=== PATIENT | male | born 1940 | race Caucasian/White ===

== ENCOUNTER → 2018-09-22 | Outpatient (CLI) | payer MEDICARE ==
[~2018-09-22] MED LIST: AMLO5TAB9 PO; ATORVASTATIN PO; EZET10 PO; HEALTH PO; METO-391 PO; TRAV2.5D OU; losartan PO
== END | disposition home or self-care (01) ==
LOC: SHCH 08:15
PROVIDERS: ATTEND Internal Medicine Cardiovascular Disease
DX: I11.9 Hypertensive heart disease without heart failure (principal)
CPT/HCPCS: 93306

== ENCOUNTER → 2018-09-26 | Outpatient (CLI) | payer MEDICARE ==
[~2018-09-26] VITALS: Ht 177.8 cm; Wt 97.5 kg
[~2018-09-26] MED LIST changes: +REGADENOSON 0.4 MG/5 ML PF SYG IVP SCH
== END | disposition home or self-care (01) ==
LOC: SHCH 08:16
PROVIDERS: ATTEND Internal Medicine Cardiovascular Disease
DX: I10 Essential (primary) hypertension (principal); I48.91 Unspecified atrial fibrillation
CPT/HCPCS: 78452; 93017; 96374; A9500 ×2; J2785

== ENCOUNTER 2018-11-01 08:43 | Observation (INO) | payer MEDICARE ==
[2018-10-31 08:49] LABS: BASOPHILS % (AUTO) 0.5 % (0.0-5.0); EOSINOPHILS % (AUTO) 2.6 % (0.0-8.0); HEMATOCRIT 44.3 % (42-54); LYMPHOCYTES % (AUTO) 19.7 % (21.0-51.0); MEAN CORPUSCULAR HEMOGLOBIN 32.7 pg (27.0-33.0); MEAN CORPUSCULAR HGB CONC 33.1 g/dL (32.0-36.0); MEAN CORPUSCULAR VOLUME 98.9 fL (79-99); MONOCYTES % (AUTO) 11.8 % (3.0-13.0); NEUTROPHILS % (AUTO) 65.4 % (40.0-77.0); NUCLEATED RED BLOOD CELLS 0.1 % (0.0-0.19); PLATELET COUNT (AUTO) 187 K/uL (130-400); RED BLOOD CELL COUNT(AUTO) 4.48 MIL/uL (4.50-6.20); RED CELL DISTRIBUTION WIDTH 14.3 % (11.0-15.5); WHITE BLOOD COUNT (AUTO) 11.2 K/uL (4.8-10.8)
[2018-10-31 08:55] LABS: CREATININE 1.1 mg/dL (0.5-1.5); POTASSIUM 4.6 mmol/L (3.5-5.1)
[2018-10-31 09:04] VITALS: BP 132/80
[2018-10-31 09:10] LABS: INR 1.02 (0.85-1.15); PROTHROMBIN TIME 10.7 SEC (9.6-11.6)
--- NOTE | 2018-10-31 11:10 | NUR ---
ABNORMAL LABS NOTIFIED COMPA RAMIREZ OF PT'S WBC 11.2. NO FURTHER ORDERS GIVEN.
[2018-11-01] VITALS (9 sets, daily range): BP systolic 114–142; BP diastolic 73–86
[~2018-11-01] VITALS: Ht 175.3 cm; Wt 101.7 kg
[~2018-11-01 08:43] MED LIST changes: +APIX5TAB PO; +ASPI-555 PO; +CYAN200018 PO; +FOLI0.4T2 PO; -HEALTH PO; +LATA7.5D OS; -REGADENOSON 0.4 MG/5 ML PF SYG IVP SCH; +SODIUM CHLORIDE 0.9% 1000ML 1,000 ML IV SCH; -TRAV2.5D OU
[2018-11-01] MEDS ORDERED: CEFAZOLIN SODIUM 1 GM VIAL ONE (11:37)
[2018-11-01] MEDS ORDERED: LIDOCAINE HCL 1% MDV 50ML VIAL ONE (11:37)
[2018-11-01] MEDS ORDERED: BUPIVACAINE/PF 0.25% 30ML VIAL IJ ONE (11:37)
[2018-11-01] MEDS ORDERED: MIDAZOLAM HCL 1 MG/ML 2ML VIAL ONE ×2 (11:55→12:31)
[2018-11-01] MEDS ORDERED: MEPERIDINE-PF 25 MG/ML SYG ONE (11:55)
[2018-11-01] MEDS ORDERED: OCTYL 2-CYANOACRYLATE 1 EACH TP ONE (12:59)
[2018-11-01] MEDS ORDERED: METOPROLOL TARTRATE 1 MG/ML 5ML VIAL IV ONE (13:08)
[2018-11-01] MEDS ORDERED: ACETAMINOPHEN 325 MG TAB PO PRN (13:30)
[2018-11-01] MEDS ORDERED: ACETAMINOPHEN-CODEINE 300/30MG TAB PO PRN (14:31)
--- NOTE | 2018-11-01 16:30 | NUR ---
POST PROCEDURE RECEIVED PT FROM DAY PATIENT, IN SHIN'S POSITION, A&OX3 CALM, COOPERATIVE AND DOES NOT APPEAR TO BE IN ANY DISTRESS NOR ANY NEURO DEFICITS PRESENT, PT DOES C/O SORENESS TO INCISION SITE, PT ON BEDREST UNTIL AM. CALL LIGHT WITHIN REACH, FAMILY AT BEDSIDE.
[2018-11-01] MEDS: METOPROLOL TARTRATE 50 MG TAB PO SCH ×2 (17:03→20:43)
[2018-11-01] MEDS: CEFAZOLIN SODIUM 1 GM VIAL IVP SCH (20:42)
[2018-11-01] MEDS ORDERED: ASPIRIN 81 MG EC TAB PO SCH (21:00)
[2018-11-01] MEDS ORDERED: ATORVASTATIN CALCIUM 20 MG TABLET PO SCH (21:00)
[2018-11-01] MEDS ORDERED: EZETIMIBE 10 MG TAB PO SCH (21:00)
[2018-11-01] MEDS ORDERED: LATANOPROST 2.5 ML DROPS OS SCH (21:00)
[2018-11-02] MEDS: CEFAZOLIN SODIUM 1 GM VIAL IVP SCH (03:35)
[2018-11-02 03:42] VITALS: BP 124/79
[2018-11-02 07:20] VITALS: BP 133/96
[2018-11-02] MEDS: METOPROLOL TARTRATE 50 MG TAB PO SCH (07:55)
--- NOTE | 2018-11-02 08:00 | NUR ---
ASSESSMENT PT IS AAOX4 DENIES CP DENIES SOB DENIES NV NO COMPLAINTS, SITTING UPRIGHT IN BED. LEFT UPPER CHEST DRESSING CLEAN DRY AND INTACT LEFT RADIAL PULSE STRONG. FAMILY AT BEDSIDE, CALL LIGHT WITHIN REACH.
[2018-11-02] MEDS ORDERED: METO-409 PO (08:08)
[2018-11-02] MEDS ORDERED: DOXY100C2 PO (08:08)
[2018-11-02] MEDS ORDERED: LOSARTAN 100 MG TABLET PO SCH (09:00)
[2018-11-02] MEDS ORDERED: FOLIC ACID 1 MG TABLET PO SCH (09:00)
[2018-11-02] MEDS ORDERED: APIXABAN 5 MG TABLET PO SCH (09:00)
[2018-11-02] MEDS ORDERED: CYANOCOBALAMIN (VITAMIN B-12) 1,000 MCG TABLET PO SCH (09:00)
--- NOTE | 2018-11-02 10:45 | NUR ---
DISCHARGE PATIENT AND FAMILY VERBALIZE DC INSTRUCTIONS UNDERSTANDING, AGREE TO TAKE MEDICATIONS ORDERED AGREE TO FOLLOW UP WITH MDS ORDERED. PIV REMOVED CATH TIP INTACT TELE PACK REMOVED. ALL QUESTIONS ANSWERED, ALL BELONGINGS TAKEN. DOWN VIA WC WITH FAMILY AND NURSE AIDE.
== END 2018-11-02 10:50 | disposition home or self-care (01) ==
LOC: DAH 08:43 → DAHIP 08:44 → DAH 08:44 → 2DH 16:33
PROVIDERS: ADMIT Internal Medicine; ATTEND Internal Medicine
DX: I49.5 Sick sinus syndrome (principal); I48.91 Unspecified atrial fibrillation; I10 Essential (primary) hypertension; D68.59 Other primary thrombophilia; E78.00 Pure hypercholesterolemia, unspecified; E66.9 Obesity, unspecified; Z68.33 Body mass index [BMI] 33.0-33.9, adult; Z79.899 Other long term (current) drug therapy
CPT/HCPCS: 33207; 36415; 71046; 80048; 85025; 85610; 85730; 93005; 96374; 96376; A4218 ×2; A4606; C1786; C1894; C1898; G0378 ×26; J0690 ×3; J2175; J2250; J3490 ×3; 99156; 99157

== ENCOUNTER 2018-12-28 06:46 | Emergency (ER) | payer MEDICARE ==
[~2018-12-28 06:46] MED LIST changes: +DOXY100C2 PO; -METO-391 PO; +METO-409 PO; -SODIUM CHLORIDE 0.9% 1000ML 1,000 ML IV SCH
[2018-12-28] MEDS ORDERED: HYDRALAZINE HCL 25 MG TABLET ONE (08:10)
== END 2018-12-28 08:45 | disposition home or self-care (01) ==
LOC: EDH 06:46
DX: I10 Essential (primary) hypertension (principal); E78.5 Hyperlipidemia, unspecified; Z95.1 Presence of aortocoronary bypass graft

== ENCOUNTER 2019-01-01 23:28 | Emergency (ER) | payer MEDICARE ==
[2019-01-02] MEDS ORDERED: AMLODIPINE BESYLATE 5 MG TAB PO ONE (00:17)
[2019-01-02 00:53] LABS: BASOPHILS % (AUTO) 0.6 % (0.0-5.0); EOSINOPHILS % (AUTO) 2.9 % (0.0-8.0); HEMATOCRIT 43.9 % (42-54); MEAN CORPUSCULAR HEMOGLOBIN 33.3 pg (27.0-33.0); MEAN CORPUSCULAR HGB CONC 33.5 g/dL (32.0-36.0); MEAN CORPUSCULAR VOLUME 99.3 fL (79-99); MONOCYTES % (AUTO) 12.7 % (3.0-13.0); NEUTROPHILS % (AUTO) 67.8 % (40.0-77.0); NUCLEATED RED BLOOD CELLS 0.1 % (0.0-0.19); PLATELET COUNT (AUTO) 188 K/uL (130-400); RED BLOOD CELL COUNT(AUTO) 4.42 MIL/uL (4.50-6.20); RED CELL DISTRIBUTION WIDTH 13.8 % (11.0-15.5); WHITE BLOOD COUNT (AUTO) 10.5 K/uL (4.8-10.8)
[2019-01-02 01:00] LABS: POTASSIUM 4.7 mmol/L (3.5-5.1)
[2019-01-02 01:05] LABS: ALBUMIN 3.6 g/dL (3.5-5.0); BILIRUBIN,TOTAL 0.6 mg/dL (0.2-1.0)
== END 2019-01-02 01:41 | disposition home or self-care (01) ==
LOC: EDH 23:28
DX: I10 Essential (primary) hypertension (principal); E78.5 Hyperlipidemia, unspecified; H40.9 Unspecified glaucoma; Z87.891 Personal history of nicotine dependence; Z79.899 Other long term (current) drug therapy
CPT/HCPCS: 36415; 71045; 80053; 82550; 84484; 85025; 93005

== ENCOUNTER → 2019-01-24 | Outpatient (CLI) | payer MEDICARE | END | disposition home or self-care (01) | LOC: SHCH 07:57 | PROVIDERS: ATTEND Internal Medicine Cardiovascular Disease | DX: I70.1 Atherosclerosis of renal artery (principal) | CPT/HCPCS: 93975 ==

== ENCOUNTER 2019-02-05 14:30 | Emergency (ER) | payer MEDICARE ==
[2019-02-05 15:09] LABS: EOSINOPHILS % (AUTO) 2.3 % (0.0-8.0); HEMATOCRIT 45.8 % (42-54); LYMPHOCYTES % (AUTO) 20.3 % (21.0-51.0); MEAN CORPUSCULAR HEMOGLOBIN 32.8 pg (27.0-33.0); MEAN CORPUSCULAR HGB CONC 33.1 g/dL (32.0-36.0); MEAN CORPUSCULAR VOLUME 99.3 fL (79-99); MONOCYTES % (AUTO) 9.4 % (3.0-13.0); PLATELET COUNT (AUTO) 213 K/uL (130-400); RED BLOOD CELL COUNT(AUTO) 4.61 MIL/uL (4.50-6.20); RED CELL DISTRIBUTION WIDTH 14.3 % (11.0-15.5)
[2019-02-05 15:42] LABS: CARBON DIOXIDE 26 mmol/L (21-32); CHLORIDE 108 mmol/L (101-111); CREATININE 1.2 mg/dL (0.5-1.5); GLOMERULAR FILTR. RATE CALC 62 mL/min (>60); GLUCOSE,RANDOM 132 mg/dL (70-105); POTASSIUM 3.5 mmol/L (3.5-5.1); SODIUM SERUM 142 mmol/L (136-145); UREA NITROGEN, BLOOD 17 mg/dL (7-18)
[2019-02-05 15:53] LABS: ALANINE AMINOTRANSFERASE 44 U/L (12-78); ALBUMIN 3.5 g/dL (3.5-5.0); ASPARTATE AMINOTRANSFERASE 28 U/L (10-37); BILIRUBIN,TOTAL 0.5 mg/dL (0.2-1.0); CREATINE KINASE, TOTAL 42 U/L (21-232); MYOGLOBIN 46 ng/mL (10-92); TOTAL PROTEIN, SERUM 6.8 g/dL (6.0-8.3); TROPONIN I < 0.04 ng/mL (0.00-0.06)
[2019-02-05] MEDS ORDERED: LABETALOL 20 MG/4 ML DISP.SYRIN IV ONE (16:09)
== END 2019-02-05 18:36 | disposition home or self-care (01) ==
LOC: EDH 14:30
DX: I10 Essential (primary) hypertension (principal); R00.2 Palpitations
CPT/HCPCS: 36415; 71045; 80053; 82550; 83874; 84484; 85025; 93005; 96374

== ENCOUNTER → 2019-02-23 | Outpatient (CLI) | payer OTHER | END | disposition home or self-care (01) | LOC: OIH 11:03 | PROVIDERS: ATTEND Internal Medicine Cardiovascular Disease | DX: Z13.6 Encounter for screening for cardiovascular disorders (principal) | CPT/HCPCS: 75571 ==

== ENCOUNTER → 2019-10-20 | Outpatient (CLI) | payer MEDICARE, BC ==
[~2019-10-20] MED LIST changes: -EZET10 PO; +EZET10TA13 PO
== END | disposition home or self-care (01) ==
LOC: SHCH 12:24
PROVIDERS: ATTEND Internal Medicine Cardiovascular Disease
DX: I08.3 Combined rheumatic disorders of mitral, aortic and tricuspid valves (principal); I48.20 Chronic atrial fibrillation, unspecified
CPT/HCPCS: 93306

== ENCOUNTER → 2020-10-15 | Outpatient (CLI) | payer MEDICARE ==
[~2020-10-15] MED LIST changes: +AMLO-257 PO; -AMLO5TAB9 PO; -ASPI-555 PO; +ASPI-556 PO
== END | disposition home or self-care (01) ==
LOC: SHCH 08:41
PROVIDERS: ATTEND Internal Medicine Cardiovascular Disease
DX: I34.0 Nonrheumatic mitral (valve) insufficiency (principal); I48.20 Chronic atrial fibrillation, unspecified; R55 Syncope and collapse; I42.0 Dilated cardiomyopathy; Z95.0 Presence of cardiac pacemaker
CPT/HCPCS: 93306; 93356

== ENCOUNTER 2020-11-18 09:09 | Day surgery (SDC) | payer MEDICARE ==
[2020-11-14 09:43] LABS: BASOPHILS % (AUTO) 0.6 % (0.0-5.0); EOSINOPHILS % (AUTO) 2.2 % (0.0-8.0); HEMATOCRIT 42.6 % (42-54); LYMPHOCYTES % (AUTO) 16.6 % (21.0-51.0); MEAN CORPUSCULAR HEMOGLOBIN 33.2 pg (27.0-33.0); MEAN CORPUSCULAR HGB CONC 33.6 g/dL (32.0-36.0); MEAN CORPUSCULAR VOLUME 98.8 fL (79-99); MONOCYTES % (AUTO) 10.5 % (3.0-13.0); NEUTROPHILS % (AUTO) 69.5 % (40.0-77.0); PLATELET COUNT (AUTO) 223 K/uL (130-400); RED BLOOD CELL COUNT(AUTO) 4.31 MIL/uL (4.50-6.20); RED CELL DISTRIBUTION WIDTH 12.9 % (11.0-15.5)
[2020-11-14 09:55] LABS: INR 1.14 (0.85-1.15); PROTHROMBIN TIME 12.3 SEC (9.6-11.6)
[2020-11-14 09:56] LABS: PARTIAL THROMBOPLASTIN TIME 29.3 SEC (26.3-35.5)
[2020-11-14 09:57] LABS: CREATININE 1.6 mg/dL (0.5-1.5); POTASSIUM 4.5 mmol/L (3.5-5.1)
[2020-11-15 15:20] VITALS: BP 135/79
[~2020-11-18] VITALS: Ht 177.8 cm; Wt 101.3 kg
[~2020-11-18 09:09] MED LIST changes: +CEFAZOLIN SODIUM 1 GM VIAL IVP SCH; -FOLI0.4T2 PO; +FOLI0.4T6 PO; +SODIUM CHLORIDE 0.9% 500ML 500 ML IV SCH
[2020-11-18 09:37] LABS: BASOPHILS % (AUTO) 0.5 % (0.0-5.0); EOSINOPHILS % (AUTO) 2.4 % (0.0-8.0); HEMATOCRIT 43.7 % (42-54); LYMPHOCYTES % (AUTO) 16.8 % (21.0-51.0); MEAN CORPUSCULAR HEMOGLOBIN 32.4 pg (27.0-33.0); MEAN CORPUSCULAR VOLUME 101.2 fL (79-99); MONOCYTES % (AUTO) 9.8 % (3.0-13.0); PLATELET COUNT (AUTO) 214 K/uL (130-400); RED BLOOD CELL COUNT(AUTO) 4.32 MIL/uL (4.50-6.20); WHITE BLOOD COUNT (AUTO) 11.5 K/uL (4.8-10.8)
[2020-11-18 09:39] VITALS: BP 112/73
[2020-11-18] MEDS ORDERED: AMLO-257 PO (10:17)
[2020-11-18] MEDS ORDERED: FURO40TA5 PO ×2 (10:17)
[2020-11-18] MEDS ORDERED: LABE100T5 PO ×2 (10:17)
[2020-11-18] MEDS ORDERED: SPIR25TA6 PO ×2 (10:17)
[2020-11-18] MEDS ORDERED: SODIUM CHLORIDE 0.9% 1000ML 1,000 ML IV ONE (10:18)
== END 2020-11-18 11:45 | disposition home or self-care (01) ==
LOC: DAH 09:09
PROVIDERS: ATTEND Internal Medicine Cardiovascular Disease
DX: I42.0 Dilated cardiomyopathy (principal); I48.91 Unspecified atrial fibrillation; Z79.01 Long term (current) use of anticoagulants; Z53.8 Procedure and treatment not carried out for other reasons
CPT/HCPCS: 36415 ×2; 80048; 85025 ×2; 85610; 85730; 93005; A4215; A4216; A4221; A4222; A4223 ×3; A4606; A4663; A6260; J7030

== ENCOUNTER 2020-11-23 06:11 | Observation (INO) | payer MEDICARE ==
[~2020-11-23] VITALS: Ht 177.8 cm; Wt 102.6 kg
[~2020-11-23 06:11] MED LIST changes: -CEFAZOLIN SODIUM 1 GM VIAL IVP SCH; +FURO40TA5 PO; +LABE100T5 PO; -SODIUM CHLORIDE 0.9% 500ML 500 ML IV SCH; +SPIR25TA6 PO
[2020-11-23 06:28] LABS: BASOPHILS % (AUTO) 0.4 % (0.0-5.0); EOSINOPHILS % (AUTO) 0.6 % (0.0-8.0); HEMATOCRIT 40.3 % (42-54); LYMPHOCYTES % (AUTO) 10.3 % (21.0-51.0); MEAN CORPUSCULAR HEMOGLOBIN 32.7 pg (27.0-33.0); MEAN CORPUSCULAR HGB CONC 33.5 g/dL (32.0-36.0); MEAN CORPUSCULAR VOLUME 97.6 fL (79-99); MONOCYTES % (AUTO) 6.2 % (3.0-13.0); PLATELET COUNT (AUTO) 193 K/uL (130-400); RED BLOOD CELL COUNT(AUTO) 4.13 MIL/uL (4.50-6.20); RED CELL DISTRIBUTION WIDTH 13.2 % (11.0-15.5); WHITE BLOOD COUNT (AUTO) 12.9 K/uL (4.8-10.8)
[2020-11-23 06:40] LABS: INR 1.1 (0.85-1.15); PROTHROMBIN TIME 11.9 SEC (9.6-11.6)
[2020-11-23 06:42] LABS: PARTIAL THROMBOPLASTIN TIME 26.7 SEC (26.3-35.5)
[2020-11-23 07:39] LABS: ALBUMIN 3.5 g/dL (3.5-5.0); BILIRUBIN,TOTAL 0.6 mg/dL (0.2-1.0); CREATININE 1.2 mg/dL (0.5-1.5); POTASSIUM 4.5 mmol/L (3.5-5.1); TOTAL PROTEIN, SERUM 6.7 g/dL (6.0-8.3)
[2020-11-23] MEDS ORDERED: MECLIZINE HCL 25 MG TABLET ONE (08:02)
[2020-11-23 08:06] LABS: APPEARANCE,URINE Clear (CLEAR); BILIRUBIN,URINE Negative (NEGATIVE); COLOR,URINE Yellow (YELLOW); GLUCOSE, URINE (UA) Negative (NEGATIVE); KETONES,URINE Negative (NEGATIVE); LEUKOCYTE ESTERASE ,URINE Negative (NEGATIVE); NITRATE,URINE Negative (NEGATIVE); OCCULT BLOOD,URINE Negative (NEGATIVE); PH,URINE 7.5 (5.0-8.0); PROTEIN,URINE Negative (NEGATIVE); UROBILINOGEN,URINE 0.2 mg/dL (0.2-1.0)
[2020-11-23] MEDS: CEFTRIAXONE SODIUM 1 GM IVP SCH (13:30)
[2020-11-23] MEDS ORDERED: CEFTRIAXONE SODIUM 1 GM ONE (13:56)
[2020-11-23] MEDS ORDERED: APIXABAN 2.5 MG TABLET PO ONE (13:56)
[2020-11-23] MEDS ORDERED: APIXABAN 5 MG TABLET PO SCH ×2 (14:40→21:00)
[2020-11-23 18:30] VITALS: BP 150/88
[2020-11-23 18:49] VITALS: BP_SYST 148; BP_SYST 152; BP_DIAS 73; BP_DIAS 94
[2020-11-23] MEDS ORDERED: MECLIZINE HCL 12.5 MG TABLET PO PRN (19:15)
[2020-11-23] MEDS: LABETALOL HCL 100 MG TABLET PO SCH (20:47)
[2020-11-23] MEDS ORDERED: EZETIMIBE 10 MG TAB PO SCH (21:00)
[2020-11-23] MEDS ORDERED: ATORVASTATIN 20 MG PO SCH (21:00)
[2020-11-23] MEDS ORDERED: ATORVASTATIN CALCIUM 20 MG TABLET PO SCH (21:00)
[2020-11-23 23:27] VITALS: BP 131/81
[2020-11-24 04:00] VITALS: BP_SYST 112; BP_SYST 118; BP_SYST 144; BP_DIAS 65; BP_DIAS 75; BP_DIAS 79
[2020-11-24 06:01] LABS: BASOPHILS % (AUTO) 0.3 % (0.0-5.0); EOSINOPHILS % (AUTO) 1.9 % (0.0-8.0); HEMATOCRIT 41.5 % (42-54); LYMPHOCYTES % (AUTO) 17.5 % (21.0-51.0); MEAN CORPUSCULAR HEMOGLOBIN 31.9 pg (27.0-33.0); MEAN CORPUSCULAR VOLUME 99.5 fL (79-99); NEUTROPHILS % (AUTO) 68.7 % (40.0-77.0); PLATELET COUNT (AUTO) 195 K/uL (130-400); RED BLOOD CELL COUNT(AUTO) 4.17 MIL/uL (4.50-6.20); RED CELL DISTRIBUTION WIDTH 13.2 % (11.0-15.5); WHITE BLOOD COUNT (AUTO) 11.8 K/uL (4.8-10.8)
[2020-11-24 06:19] LABS: CREATININE 1.3 mg/dL (0.5-1.5); MAGNESIUM 2.1 mg/dL (1.80-2.40); POTASSIUM 4.3 mmol/L (3.5-5.1)
[2020-11-24 08:00] VITALS: BP_SYST 142; BP_SYST 146; BP_SYST 148; BP_SYST 151; BP_DIAS 73; BP_DIAS 78; BP_DIAS 97; BP_DIAS 99
[2020-11-24] MEDS ORDERED: SODIUM CHLORIDE 0.9% 1000ML 1,000 ML IV ONE (08:15)
[2020-11-24] MEDS ORDERED: LOSARTAN 100 MG PO SCH (09:00)
[2020-11-24] MEDS ORDERED: AMLODIPINE BESYLATE 5 MG TAB PO SCH (09:00)
[2020-11-24] MEDS ORDERED: LOSARTAN 100 MG TABLET PO SCH (09:00)
[2020-11-24] MEDS: LABETALOL HCL 100 MG TABLET PO SCH (09:31)
[2020-11-24] MEDS: APIXABAN 5 MG TABLET PO SCH ×2 (09:31→09:32)
[2020-11-24] MEDS ORDERED: IOHEXOL 350 MG/ML 100ML INFUS..BTL IV ONE (11:45)
[2020-11-24 12:00] VITALS: BP_SYST 113; BP_SYST 121; BP_DIAS 77; BP_DIAS 78; BP_DIAS 84
[2020-11-24] MEDS: CEFTRIAXONE SODIUM 1 GM IVP SCH (13:43)
[2020-11-24] MEDS ORDERED: MECL-226 PO ×2 (15:11)
[2020-11-24] MEDS ORDERED: AMOX-429 PO ×2 (15:24)
== END 2020-11-24 18:00 | disposition home or self-care (01) ==
LOC: EDH 06:11 → EDHIP 13:25 → 3AH 18:12
PROVIDERS: ADMIT Internal Medicine; ATTEND Internal Medicine
DX: R42 Dizziness and giddiness (principal); J32.9 Chronic sinusitis, unspecified; D72.829 Elevated white blood cell count, unspecified; E78.5 Hyperlipidemia, unspecified; I48.20 Chronic atrial fibrillation, unspecified; I11.0 Hypertensive heart disease with heart failure; I50.22 Chronic systolic (congestive) heart failure; I42.8 Other cardiomyopathies; E78.00 Pure hypercholesterolemia, unspecified; Z95.0 Presence of cardiac pacemaker; Z98.41 Cataract extraction status, right eye; Z98.42 Cataract extraction status, left eye; Z79.01 Long term (current) use of anticoagulants; Z79.899 Other long term (current) drug therapy
CPT/HCPCS: 36415 ×2; 70450; 70496; 70498; 71045; 80048; 80053; 81003; 83735; 83880; 84145; 84484 ×3; 85025 ×2; 85610; 85730; 93005 ×2; 96361; 96374; 97161; 99285; G0378 ×29; G8978; G8979; G8980; G8981; G8982; G8983; J0696 ×2; Q9967

== ENCOUNTER → 2022-03-09 | Outpatient (CLI) | payer OTHER ==
[~2022-03-09] MED LIST changes: +AMOX-429 PO; -ASPI-556 PO; -CYAN200018 PO; -DOXY100C2 PO; -FOLI0.4T6 PO; -LATA7.5D OS; +MECL-226 PO; -METO-409 PO
== END | disposition home or self-care (01) ==
LOC: LAB 08:25
PROVIDERS: ATTEND Internal Medicine Cardiovascular Disease
DX: I48.20 Chronic atrial fibrillation, unspecified (principal)
CPT/HCPCS: 36415; 80162

== ENCOUNTER → 2022-11-25 | Outpatient (CLI) | payer OTHER ==
[~2022-11-25] MED LIST changes: -LABE100T5 PO; +LABE100T7 PO
== END | disposition home or self-care (01) ==
LOC: LAB 10:59
PROVIDERS: ATTEND Physician Assistant
DX: I48.20 Chronic atrial fibrillation, unspecified (principal); I10 Essential (primary) hypertension
CPT/HCPCS: 36415; 80162

== ENCOUNTER → 2022-12-30 | Outpatient (CLI) | payer OTHER ==
[2022-12-30 16:33] LABS: ALBUMIN 3.8 g/dL (3.5-5.0); CREATININE 1.4 mg/dL (0.5-1.5); DIGOXIN 0.41 ng/mL (0.50-2.00); MAGNESIUM 2.2 mg/dL (1.80-2.40); POTASSIUM 3.6 mmol/L (3.5-5.1); TOTAL PROTEIN, SERUM 7.4 g/dL (6.0-8.3)
== END | disposition home or self-care (01) ==
LOC: LAB 15:10
PROVIDERS: ATTEND Physician Assistant
DX: I12.9 Hypertensive chronic kidney disease with stage 1 through stage 4 chronic kidney disease, or unspecified chronic kidney disease (principal); N18.30 Chronic kidney disease, stage 3 unspecified; E78.5 Hyperlipidemia, unspecified; I48.20 Chronic atrial fibrillation, unspecified; Z79.01 Long term (current) use of anticoagulants; Z79.899 Other long term (current) drug therapy
CPT/HCPCS: 36415; 80053; 80162; 83735

== ENCOUNTER → 2023-04-07 | Outpatient (CLI) | payer OTHER | END | disposition home or self-care (01) | LOC: LAB 10:44 | PROVIDERS: ATTEND Internal Medicine Cardiovascular Disease | DX: I12.9 Hypertensive chronic kidney disease with stage 1 through stage 4 chronic kidney disease, or unspecified chronic kidney disease (principal); N18.30 Chronic kidney disease, stage 3 unspecified; I42.8 Other cardiomyopathies; E78.5 Hyperlipidemia, unspecified; Z79.01 Long term (current) use of anticoagulants; Z79.899 Other long term (current) drug therapy; Z95.810 Presence of automatic (implantable) cardiac defibrillator | CPT/HCPCS: 36415; 80162 ==

== ENCOUNTER → 2023-07-13 | Outpatient (CLI) | payer OTHER ==
[~2023-07-13] MED LIST changes: -EZET10TA13 PO; +EZET10TA81 PO
== END | disposition home or self-care (01) ==
LOC: LAB 10:02
PROVIDERS: ATTEND Internal Medicine Cardiovascular Disease
DX: I10 Essential (primary) hypertension (principal); E78.5 Hyperlipidemia, unspecified; Z79.899 Other long term (current) drug therapy
CPT/HCPCS: 36415; 80162

== ENCOUNTER → 2023-10-13 | Outpatient (CLI) | payer OTHER | END | disposition home or self-care (01) | LOC: SHCH 12:53 | PROVIDERS: ATTEND Internal Medicine Cardiovascular Disease | DX: I48.20 Chronic atrial fibrillation, unspecified (principal) | CPT/HCPCS: 93306 ==

== ENCOUNTER → 2023-10-14 | Outpatient (CLI) | payer OTHER | END | disposition home or self-care (01) | LOC: LAB 09:02 | PROVIDERS: ATTEND Physician Assistant | DX: I10 Essential (primary) hypertension (principal); E78.5 Hyperlipidemia, unspecified; Z79.899 Other long term (current) drug therapy | CPT/HCPCS: 36415; 80162 ==

== ENCOUNTER → 2023-10-15 | Outpatient (CLI) | payer OTHER ==
[2023-10-15 15:15] LABS: BASOPHILS # (AUTO) 0.06 K/uL (0.00-0.20); BASOPHILS % (AUTO) 0.4 % (0.0-5.0); EOSINOPHILS # (AUTO) 0.38 K/uL (0.00-0.70); EOSINOPHILS % (AUTO) 2.8 % (0.0-8.0); HEMATOCRIT 43.1 % (42-54); IMMATURE GRANULOCYTE ABSOLUTE 0.09 K/uL (0-1); LYMPHOCYTES # (AUTO) 2.2 K/uL (1.0-4.8); LYMPHOCYTES % (AUTO) 16.2 % (21.0-51.0); MEAN CORPUSCULAR HEMOGLOBIN 33.1 pg (27.0-33.0); MEAN CORPUSCULAR HGB CONC 32.7 g/dL (32.0-36.0); MEAN CORPUSCULAR VOLUME 101.2 fL (79-99); MONOCYTES # (AUTO) 1.4 K/uL (0.1-1.0); MONOCYTES % (AUTO) 10.2 % (3.0-13.0); NEUTROPHILS # (AUTO) 9.6 K/uL (1.8-7.7); NEUTROPHILS % (AUTO) 69.7 % (40.0-77.0); PLATELET COUNT (AUTO) 186 K/uL (130-400); RED BLOOD CELL COUNT(AUTO) 4.26 MIL/uL (4.50-6.20); RED CELL DISTRIBUTION WIDTH 13.4 % (11.0-15.5); WHITE BLOOD COUNT (AUTO) 13.7 K/uL (4.8-10.8)
[2023-10-15 15:46] LABS: ALBUMIN 3.7 g/dL (3.5-5.0); BILIRUBIN,TOTAL 0.7 mg/dL (0.2-1.0); CREATININE 1.5 mg/dL (0.5-1.5); DIGOXIN 0.69 ng/mL (0.50-2.00); POTASSIUM 4.3 mmol/L (3.5-5.1); TOTAL PROTEIN, SERUM 7.3 g/dL (6.0-8.3)
== END | disposition home or self-care (01) ==
LOC: LAB 13:07
PROVIDERS: ATTEND Internal Medicine Cardiovascular Disease
DX: I48.20 Chronic atrial fibrillation, unspecified (principal); I10 Essential (primary) hypertension
CPT/HCPCS: 36415; 80053; 80162; 83735; 85025

== ENCOUNTER 2025-07-10 03:40 | Observation (INO) | payer OTHER ==
[~2025-07-10] VITALS: Ht 177.8 cm; Wt 96.8 kg
[~2025-07-10 03:40] MED LIST changes: +LABE-9 PO; -LABE100T7 PO
[2025-07-10 04:05] LABS: IMMATURE GRANULOCYTE ABSOLUTE 0.07 K/uL (0-1); NUCLEATED RED BLOOD CELLS 0.0 % (0.0-0.19); PLATELET COUNT (AUTO) 182 K/uL (130-400); RED BLOOD CELL COUNT(AUTO) 4.25 MIL/uL (4.50-6.20); RED CELL DISTRIBUTION WIDTH 13.3 % (11.0-15.5); WHITE BLOOD COUNT (AUTO) 11.7 K/uL (4.8-10.8)
[2025-07-10 04:18] LABS: CREATININE 1.5 mg/dL (0.5-1.3); GLOMERULAR FILTR. RATE CALC 45.0 mL/min (>90); GLUCOSE,RANDOM 114.0 mg/dL (70-105); SODIUM SERUM 139.0 mmol/L (136-145); UREA NITROGEN, BLOOD 23.0 mg/dL (7-18)
[2025-07-10 04:22] LABS: ASPARTATE AMINOTRANSFERASE 30.0 U/L (10-37); TOTAL PROTEIN, SERUM 7.0 g/dL (6.0-8.3)
--- NOTE | 2025-07-10 04:28 | NUR ---
BIOTRONIC PACEMAKER INTERROGATED. [employer] CALLED FOR REPORT, . SERIAL NUMBER OF DEVICE IS [phone]. PENDING RETURN CALL FROM REP.
--- NOTE | 2025-07-10 04:54 | HMCIMG ---
EXAM: CR Chest, 1 view CLINICAL HISTORY: Chest pain. COMPARISON: None provided. FINDINGS: The right CP angle is excluded from the image. No large pleural effusion. The lungs show no infiltrates or other acute findings. No pleural effusion or pneumothorax. The cardiomediastinal silhouette is within normal limits. Left-sided cardiac pacemaker device in place. No acute osseous abnormality. IMPRESSION: No acute cardiopulmonary process is evident. /[place]
--- NOTE | 2025-07-10 05:45 | ERN ---
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 Patient states he woke up this evening with a fast heart rate. He was concerned thus he decided to come to the emergency room for evaluation. States he does have a pacemaker. Allergies: Coded Allergies: No Known Allergies (Unverified Allergy, Unknown, 10/31/14) Home Meds Active Scripts Amoxicillin/Potassium Clav (Augmentin 875-125 Tablet) 1 Each Tablet, 1 EACH PO B ID for 5 Days, #10 TAB 0 Refills Prov:JUDAH ALVAREZ AGACNP 11/24/20 Meclizine HCl (Meclizine HCl) 12.5 Mg Tablet, 12.5 MG PO TID PRN for DIZZINESS for 10 Days, #30 TAB 0 Refills Prov:JUDAH ALVAREZ AGAP 11/24/20 Reported Medications Spironolactone (Spironolactone) 25 Mg Tablet, 25 MG PO DAILY, TAB 11/18/20 Furosemide (Furosemide) 40 Mg Tablet, 40 MG PO DAILY, TAB 11/18/20 Labetalol HCl (Labetalol HCl) 100 Mg Tablet, 100 MG PO BID, TAB 11/18/20 Apixaban (Eliquis) 5 Mg Tablet, 5 MG PO BID, TAB 10/31/18 [losartan] No Conflict Check, 100 MG PO DAILY 10/31/14 Amlodipine Besylate (Amlodipine Besylate) 5 Mg Tablet, 5 MG PO DAILY, TAB 10/31/14 Ezetimibe (Zetia) 10 Mg Tablet, 10 MG PO HS, TAB 10/31/14 [Atorvastatin] No Conflict Check, 20 MG PO HS 10/31/14 Past Medical History Past Medical History: Hypertension, Seizure, Other Medical History Other: GLAUCOMA Past Surgical History: Other Cardiovascular: (+) palpitations; (-) chest pain Physical Exam General Appearance: (+) no apparent distress Orientation: (+) alert, (+) oriented x 3 Eye: bilateral eye normal inspection, bilateral eye PERRL, bilateral eye EOMI Ear, Nose, Throat: (+) hearing grossly normal, (+) normal ENT inspection, (+) moist mucous membraine Neck: (+) normal inspection Heart: (+) regular; (-) murmur, (-) tachycardia Results Laboratory and Microbiology Lab and Micro Result Laboratory Tests Test 07/10/25 03:58 White Blood Count 11.7 K/uL (4.8-10.8) H Red Blood Count 4.25 MIL/uL (4.50-6.20) L Hemoglobin 13.9 g/dL (14.0-18.0) L Hematocrit 43.1 % (42-54) Mean Corpuscular Volume 101.4 fL (79-99) H Mean Corpuscular Hemoglobin 32.7 pg (27.0-33.0) Mean Corpuscular Hemoglobin Concent 32.3 g/dL (32.0-36.0) Red Cell Distribution Width 13.3 % (11.0-15.5) Platelet Count 182 K/uL (130-400) Mean Platelet Volume 11.1 fL (7.5-10.5) H Immature Granulocyte % (Auto) 0.6 % (0-1) Neutrophils (%) (Auto) 63.5 % (40.0-77.0) Lymphocytes (%) (Auto) 20.6 % (21.0-51.0) L Monocytes (%) (Auto) 10.1 % (3.0-13.0) Eosinophils (%) (Auto) 4.7 % (0.0-8.0) Basophils (%) (Auto) 0.5 % (0.0-5.0) Neutrophils # (Auto) 7.4 K/uL (1.8-7.7) Lymphocytes # (Auto) 2.4 K/uL (1.0-4.8) Monocytes # (Auto) 1.2 K/uL (0.1-1.0) H Eosinophils # (Auto) 0.55 K/uL (0.00-0.70) Basophils # (Auto) 0.06 K/uL (0.00-0.20) Absolute Immature Granulocyte (auto 0.07 K/uL (0-1) Nucleated Red Blood Cells 0.0 % (0.0-0.19) Sodium Level 139 mmol/L (136-145) Potassium Level 3.3 mmol/L (3.5-5.1) L Chloride Level 103 mmol/L (101-111) Carbon Dioxide Level 30 mmol/L (21-32) Blood Urea Nitrogen 23 mg/dL (7-18) H Creatinine 1.5 mg/dL (0.5-1.3) H Glomerular Filtration Rate Calc 45 mL/min (>90) Random Glucose 114 mg/dL (70-105) H Total Calcium 9.1 mg/dL (8.5-10.1) Magnesium Level 2.10 mg/dL (1.80-2.40) Total Bilirubin 0.5 mg/dL (0.2-1.0) Direct Bilirubin 0.2 mg/dL (0.0-0.3) Aspartate Amino Transf (AST/SGOT) 30 U/L (10-37) Alanine Aminotransferase (ALT/SGPT) 37 U/L (12-78) Alkaline Phosphatase 152 U/L (50-136) H Troponin I High Sensitivity 6 ng/L (4-75) Total Protein 7.0 g/dL (6.0-8.3) Albumin 3.6 g/dL (3.5-5.0) MDM 84-year-old male history of coronary artery disease here for evaluation of palpitations. We will interrogate the pacemaker at this time. Labs and i maging/cardiac workup to be done. Likely admission for observation ED Course Orders Procedure Category Date Status Time Cbc With Differential LAB 07/10/25 Complete 03:50 Basic Metabolic Panel LAB 07/10/25 Complete 03:50 12 Lead Ekg Tracing- EKG 07/10/25 Complete Technical 03:50 Troponin I High LAB 07/10/25 Complete Sensitivity 03:50 Chest 1vw RAD 07/10/25 Resulted 03:50 Urinalysis Profile LAB 07/10/25 Logged 03:50 Hepatic Function Panel LAB 07/10/25 Complete 03:50 Magnesium LAB 07/10/25 Complete 05:26 Potassium Bicarb/Cit PHA 07/10/25 Complete Ac 25meq (K-Lyte Ta 06:30 Current Medications Medications (Trade) Dose Ordered Sig/Wendy Route PRN Reason Start Time Stop Time Status Last Admin Dose Admin Potassium Bicarbonate (K-Lyte Tablet Eff 25 Meq Tablet.eff) 50 meq ONCE ONCE PO 07/10/25 06:30 07/10/25 06:31 DC 07/10/25 06:27 Vital Signs Date Time Temp Pulse Resp B/P (MAP) Pulse Ox O2 Delivery O2 Flow Rate FiO2 07/10/25 06:07 80 16 131/80 96 Room Air* 0 21 07/10/25 03:58 97.5 80 16 159/67 99 Room Air* 0 21 07/10/25 03:42 97.3 83 20 142/97 96 Room Air Spoke to benchmark team they. They will admit the patient. HEART Score Response (Comments) Value History: Moderate suspicion (+1) 1 EKG: Normal 0 Age: > 65yrs (+2) 2 Risk Factors: 3+ risk factors (+2) 2 Initial Troponin: Normal limit (0) 0 HEART Score Risk: Mod Risk for MACE (4-6) Total 5 DX & DISP Disposition: Inpatient Departure Impression: Primary Impression: Palpitations Additional Impressions: Hypokalemia, CKD (chronic kidney disease) Condition: Stable Referrals: KVNG HENDRIX MD (PCP) ARMANDO ARCE MD Jul 10, 2025 05:45
--- NOTE | 2025-07-10 05:48 | EKG ---
[facility] Test Date: 2025-07-10 Test Time: 03:49:37 Pat Name: SUMMER COYLE Department: ED Room: 304 Gender: M Service Order Dispatcher Chief: [id number] : 1940 Requested By: ARMANDO ARCE Order Number: [id number] Reading MD: Micaela Saldaña Measurements Intervals [place] Rate: 80 P: 0 [place]: 193 QRS: 224 QRSD: 170 T: 34 QT: 436 QTc: 504 Interpretive Statements Ventricular-paced rhythm Compared to ECG 11/24/2020 07:28:05 Atrial fibrillation no longer present ST (T wave) deviation no longer present Possible ischemia no longer present Electronically Signed On 07-11-2025 08:45:43 BED RUBBER by Micaela Saldaña Please click the below link to view image of tracing.
[2025-07-10 08:14] LABS: APPEARANCE,URINE CLOUDY (CLEAR); GLUCOSE, URINE (UA) NEGATIVE (NEGATIVE); LEUKOCYTE ESTERASE ,URINE 250 Leu/uL (NEGATIVE); NITRATE,URINE NEGATIVE (NEGATIVE); OCCULT BLOOD,URINE SMALL (NEGATIVE)
[2025-07-10 08:20] LABS: ADD UA MICROSCOPIC YES
[2025-07-10 08:24] LABS: NON-SQUAMOUS EPITHELIAL CELL 2 /HPF (0-2); SQUAMOUS EPITHELIAL CELL,UR RARE /HPF (0-2)
[2025-07-10 08:57] LABS: COVID19 (SARS ANTIGEN RAPID) PRESUMPTIVE NEGATIVE (NEGATIVE); INFLUENZA TYPE A Negative For Type A (NEGATIVE); INFLUENZA TYPE B Negative For Type B (NEGATIVE)
[2025-07-10 09:03] LABS: AMPHET/METH SCREEN,URINE NEGATIVE (NEGATIVE); BARBITURATE SCREEN, URINE NEGATIVE (NEGATIVE); CANNABINOID SCREEN,URINE NEGATIVE (NEGATIVE); COCAINE SCREEN,URINE NEGATIVE (NEGATIVE)
[2025-07-10 09:05] LABS: CREATINE KINASE, TOTAL 30.0 U/L (21-232)
[2025-07-10] MEDS ORDERED: METO100T14 PO (10:48)
[2025-07-10] MEDS ORDERED: DOCU100C33 PO (10:48)
[2025-07-10] MEDS ORDERED: CLON0.1T PO (10:48)
[2025-07-10] MEDS ORDERED: LACO100T14 PO (10:48)
[2025-07-10] MEDS ORDERED: LEVO5TAB13 PO (10:55)
[2025-07-10] MEDS ORDERED: PANT20TA18 PO (10:55)
[2025-07-10 13:36] LABS: CREATININE 1.4 mg/dL (0.5-1.3); GLOMERULAR FILTR. RATE CALC 49.0 mL/min (>90); GLUCOSE,RANDOM 96.0 mg/dL (70-105); SODIUM SERUM 140.0 mmol/L (136-145); UREA NITROGEN, BLOOD 22.0 mg/dL (7-18)
[2025-07-10 14:50] LABS: CREATINE KINASE, TOTAL 32.0 U/L (21-232)
[2025-07-10] MEDS ORDERED: MAGNESIUM 2GM PREMIX 50ML 50 ML IV PRN (15:00)
[2025-07-10] MEDS ORDERED: PoTASSium chl 10% ELIXIR 20MEQ 20 MEQ/15 ML UDCUP PO PRN (15:00)
--- NOTE | 2025-07-10 15:09 | HP ---
[facility] HISTORY & PHYSICAL Date Patient Seen: Jul 10, 2025 Time of Visit: 14:49 Supervising Physician: Dr. Sarina Livingston Primary Care Physician: Dr. Cici Galeana Outpatient Specialists: Dr. Perez (pulmonary, [place], [place]), Dr. Lokesh Wise ( cardiology), Inpatient Consults: Dr. Lokesh Wise ( cardiolog PROBLEM LIST: Acute hypoxic respiratory failure, POA Palpations Acute complicated cystitis LORENE on ATN CHRONIC PROBLEM LIST: Obstructive sleep apnea, utilizes CPAP COPD, not in acute exacerbation AFib, s/p AICD Hypertension Hyperlipidemia Obesity, BMI 31.1 Cerebrovascular disease s/p cerebrovascular accident PLAN: Telemetry. Diet: Cardiac 2 g low-sodium Echocardiogram Acute complicated cystitis, ceftriaxone 2 g IV Q 24 hours Acute kidney injury, gentle IV hydration with NS at 50 mL an hour Pacemaker interrogated awaiting report Patient's home medications reviewed and reconciled GI prophylaxis Protonix 40 mg p.o. daily DVT prophylaxis with heparin 5000 units b.i.d. Further orders per course of stay A.m. labs HPI: Paddy Correa, 84-year-old gentleman, patient of PCP Dr. Cici Galeana, health history: AFib, s/p AICD, hypertension, obesity, COPD, MONALISA, and history of smoking presents to the emergency department with palpations. Patient awoke from sleep feeling his heart racing which prompted the patient to report immediately to the emergency department early this morning for further evaluation, treatment, and management. Onset was this early this morning. Patient reports not feeling his AICD firing. Patient denies recent ill person contact, fever, chills, chest pain, recent weight loss or night sweats and also reports no changes in medication at this time. Vital signs: Temperature 98.6, pulse 80, respirations 20, blood pressure 1 25/74, 97 % oxygen saturation on room air, FiO2, 21. Lab results: WBC 11.7, hemoglobin 13.9, hematocrit 43.1, platelets 182, sodium 140, potassium 3.7, BUN 22, creatinine 1.4, GFR 49, total calcium 8.9, magnesium 2.1, BNP 167, TSH 2.54 troponin high-intensity 6.7, creatine kinase 30. Urine: Leukocyte esterase 250, urine nitrate negative, urine bilirubin negative. Serology: Influenza A negative, influenza B negative, and [id number] presumptive negative. CXR results: Bibasilar airspace disease may reflect an infectious and/or an inflammatory process. The patient was examined and assessed in the emergency department [place] 18 with spouse at bedside patient is awake alert and oriented as well as in no acute distress the time of my assessment. PAST MEDICAL HX: see above PAST SURGICAL HX: noncontributory SOCIAL HISTORY: The patient reports smoking in the past for 20+ years, has not smoked in over 30 years reports drinking alcohol socially and denies recreational drug usage is retired and lives with spouse in the [facility] area Coded Allergies: No Known Allergies (Unverified Allergy, Unknown, 10/31/14) REVIEW OF SYSTEMS: 12 point ROS reviewed with patient. Pertinent positives mentioned above. Otherwise negative. PHYSICAL EXAM: GENERAL: alert, weak, awake oriented x 3 HEENT: EOMI, Sclera non icteric, moist mucosa NECK: Supple, no JVD, trachea midline LUNGS: Clear breath sounds bilaterally. No wheezes HEART: Regular rate and rhythm. Normal S1 and S2, without murmurs ABD: Abdomen soft, nontender. Bowel sounds present EXT: No clubbing cyanosis or edema NEURO: Alert and oriented to person, follows commands Vital Signs (last 8hr) Date Time Temp Pulse Resp B/P (MAP) Pulse Ox O2 Delivery O2 Flow Rate FiO2 07/10/25 11:45 80 20 134/89 97 Room Air* 0 21 07/10/25 07:15 98.6 80 20 125/74 97 Room Air* 0 21 LABS: Hematology Labs: Test 07/10/25 03:58 Range/Units White Blood Count 11.7 H 4.8-10.8 K/uL Red Blood Count 4.25 L 4.50-6.20 MIL/uL Hemoglobin 13.9 L 14.0-18.0 g/dL Hematocrit 43.1 42-54 % Mean Corpuscular Volume 101.4 H 79-99 fL Mean Corpuscular Hemoglobin 32.7 27.0-33.0 pg Mean Corpuscular Hemoglobin Concent 32.3 32.0-36.0 g/dL Red Cell Distribution Width 13.3 11.0-15.5 % Platelet Count 182 130-400 K/uL Mean Platelet Volume 11.1 H 7.5-10.5 fL Immature Granulocyte % (Auto) 0.6 0-1 % Neutrophils (%) (Auto) 63.5 40.0-77.0 % Lymphocytes (%) (Auto) 20.6 L 21.0-51.0 % Monocytes (%) (Auto) 10.1 3.0-13.0 % Eosinophils (%) (Auto) 4.7 0.0-8.0 % Basophils (%) (Auto) 0.5 0.0-5.0 % Neutrophils # (Auto) 7.4 1.8-7.7 K/uL Lymphocytes # (Auto) 2.4 1.0-4.8 K/uL Monocytes # (Auto) 1.2 H 0.1-1.0 K/uL Eosinophils # (Auto) 0.55 0.00-0.70 K/uL Basophils # (Auto) 0.06 0.00-0.20 K/uL Absolute Immature Granulocyte (auto 0.07 0-1 K/uL Nucleated Red Blood Cells 0.0 0.0-0.19 % Chemistry Labs: Test 07/10/25 08:39 07/10/25 03:58 Range/Units Sodium Level 140 136-145 mmol/L Potassium Level 3.7 3.5-5.1 mmol/L Chloride Level 103 101-111 mmol/L Carbon Dioxide Level 28 21-32 mmol/L Blood Urea Nitrogen 22 H 7-18 mg/dL Creatinine 1.4 H 0.5-1.3 mg/dL Glomerular Filtration Rate Calc 49 >90 mL/min Random Glucose 96 70-105 mg/dL Lactic Acid Level 1.7 0.8-2.5 mmol/L Total Calcium 8.9 8.5-10.1 mg/dL Magnesium Level 2.10 1.80-2.40 mg/dL Total Creatine Kinase 30 # 21-232 U/L Troponin I High Sensitivity 6.7 4-75 ng/L B-Type Natriuretic Peptide 167 H 0-100 pg/mL Thyroid Stimulating Hormone (TSH) 2.54 0.36-3.74 uIU/mL Total Bilirubin 0.5 0.2-1.0 mg/dL Direct Bilirubin 0.2 0.0-0.3 mg/dL Aspartate Amino Transf (AST/SGOT) 30 10-37 U/L Alanine Aminotransferase (ALT/SGPT) 37 12-78 U/L Alkaline Phosphatase 152 H 50-136 U/L Total Protein 7.0 6.0-8.3 g/dL Albumin 3.6 3.5-5.0 g/dL DIAGNOSTICS / RADIOLOGY RESULTS: REASON: SOB ORDERING PHYSICIAN: KYARA CAMACHO MD PROCEDURE: CXR1VW - CHEST 1VW EXAM: CR Chest, 2 View. CLINICAL HISTORY: SOB COMPARISON: None provided. FINDINGS: Bibasilar airspace disease may reflect an infectious and/or an inflammatory process. Suspected trace bilateral effusions. No pneumothorax. Heart size and pulmonary vessels are within normal limits. Atherosclerosis of the thoracic aorta. IMPRESSION: 1. Bibasilar airspace disease, possibly infectious or inflammatory. 2. Suspected trace bilateral pleural effusions. /[place] DICTATED BY: BRINDA CERDA Jr., MD DATE: 07/10/251243 ELECTRONICALLY SIGNED BY: BRINDA CERDA Jr., MD DATE: 07/10/251243 PLAN NEURO: Minimize central acting medications as possible. Maintain fall precautions, adequate lighting during the day PULMONARY: Supplemental 02 as needed. Maintain aspiration precautions at all times CARDIOVASCULAR: Follow hemodynamics. Vital signs per facility protocol GI & NUTRITION: Continue with nutritional support. Continue stool softeners and laxatives as needed. KIDNEYS & ELECTROLYTES: Strict monitoring of intake, output and overall fluid balance. Avoid nephrotoxic medications to the extent possible. Medications to be dosed according to renal function. Monitor electrolytes and replace as needed ENDOCRINE: Maintain blood glucose between 100-180 at all times. Hypoglycemia protocol in place INFECTIOUS DISEASE: Trend temperature, WBC and procalcitonin level Follow cultures, deescalate antibiotics as soon as possible. Panculture if new onset fever ONCOLOGY/HEMATOLOGY/COAGULATION: Monitor for s/s of bleeding Monitor hemoglobin, coagulation studies as needed SKIN: Pressure ulcer prevention per facility protocol Specialty mattress ORTHO/REHAB: Continue PT/OT Prophylaxis: Continue GI and DVT prophylaxis Code Status: Full Resuscitation Disposition: TBD Other: Total patient care time exceeds 35 minutes excluding all procedures. JONNA AMARO AGACNP Jul 10, 2025 15:09
[2025-07-10] MEDS: PoTASSium chloRIDE 20MEQ ER 20 MEQ ERTAB PO PRN (15:11)
--- NOTE | 2025-07-10 16:07 | NUR ---
DCP:HOME Pt currently lives at home with his Pamela Correa [phone]. Pt states he only has a CPAP at home. Pt denies any home health or provider services. Pt states that he is able to complete ADLs independently. PCP is Dr. Cici Galeana and uses [facility] for any RX needs. At DC pt will want to go home and family can assist with transportation.
[2025-07-10 16:30] VITALS: BP 119/75; PULSE 80; RESP 16; TEMP 97.6
--- NOTE | 2025-07-10 17:27 | CONS ---
Cardiology Consult Note Cardiology Attending: Raman Levy Consulting Physician: ER physician Date of Service: 07/10/25 Reason for Consult: Palpitations HPI: This is an 84-year-old male with a past medical history nonischemic cardiomyopathy, chronic systolic congestive heart failure (improved LVEF of 50% by echocardiogram done in 2024), status post Bi V AICD placement done on 12/18/2020, chronic atrial fibrillation, on anticoagulation, and HTN who pres ents with palpitations, that began this morning, at approximately 2:00 a.m.. The symptoms began spontaneously awoke the patient from sleep. The symptoms lasted less than 1 minute, and resolved without any specific treatment. Associated symptoms include high blood pressure, BP 150/100 mm Hg. The patient denied any associated symptoms or any other active complaints including heada jonas, dizziness, syncope, chest pain, chest pressure, shortness for breath, PND, orthopnea, abdominal pain, weight gain, or lower extremity swelling/edema. Patient states that he took one dose of clonidine and subsequently called EMS services who brought him to the hospital. ECG done in the emergency room identified a ventricularly paced rhythm, with a heart rate of 80 beats per m inute. Of note is that the patient recently stopped taking a electrolyte supplement. In the emergency room he was found to have potassium of 3.3. PMH: Listed above PSH: Listed above FH: Significant for CAD, HTN, DMII, and CVA. SH: Denies alcohol, tobacco, or illicit drug use. Medications: Metoprolol tartrate 100 mg b.i.d., ezetimibe 10 mg daily, furosemide 40 mg daily, Eliquis 5 mg b.i.d., atorvastatin 20 mg daily Allergies: Coded Allergies: No Known Allergies (Unverified Allergy, Unknown, 10/31/14) Review of systems: General: Denies fever or chills HEENT: Denies changes in vision, earache or sore throat Neck: Denies pain or stiffness Cardio: As per the HPI Pulm: Denies SOB, coughing or wheezing GI: Denies abdominal pain, nausea, vomiting, diarrhea, or constipation. MSK: Denies muscle or back pain. Heme: Denies anemia, easy bruising, or bleeding. Neuro: Denies headache, dizziness, or syncope. Psych: As per the HPI. Physical Exam: Vital Signs Date Time Temp Pulse Resp B/P (MAP) Pulse Ox O2 Delivery O2 Flow Rate FiO2 07/10/25 16:30 97.5 80 16 119/75 98 Room Air 07/10/25 11:45 0 21 General: Alert and oriented x 3. NAD HEENT: NC/AT. Oral mucosa is moist. Neck: No masses, JVD, or carotid bruits Lungs: NRD. SCM. B/L CTA. No wheezing, rales or rhonchi. Cardio: Rate @ 80bpm. Abdomen: Soft. NT. ND. Normal active bowel sounds x 4 quadrants. Extremities: Diminished throughout Neuro: CN II-XII were grossly intact. No focal deficits. Labs: Laboratory Tests Test 07/10/25 03:58 07/10/25 07:46 07/10/25 08:20 07/10/25 08:39 Range/Units White Blood Count 11.7 H 4.8-10.8 K/uL Red Blood Count 4.25 L 4.50-6.20 MIL/uL Hemoglobin 13.9 L 14.0-18.0 g/dL Hematocrit 43.1 42-54 % Mean Corpuscular Volume 101.4 H 79-99 fL Mean Corpuscular Hemoglobin 32.7 27.0-33.0 pg Mean Corpuscular Hemoglobin Concent 32.3 32.0-36.0 g/dL Red Cell Distribution Width 13.3 11.0-15.5 % Platelet Count 182 130-400 K/uL Mean Platelet Volume 11.1 H 7.5-10.5 fL Immature Granulocyte % (Auto) 0.6 0-1 % Neutrophils (%) (Auto) 63.5 40.0-77.0 % Lymphocytes (%) (Auto) 20.6 L 21.0-51.0 % Monocytes (%) (Auto) 10.1 3.0-13.0 % Eosinophils (%) (Auto) 4.7 0.0-8.0 % Basophils (%) (Auto) 0.5 0.0-5.0 % Neutrophils # (Auto) 7.4 1.8-7.7 K/uL Lymphocytes # (Auto) 2.4 1.0-4.8 K/uL Monocytes # (Auto) 1.2 H 0.1-1.0 K/uL Eosinophils # (Auto) 0.55 0.00-0.70 K/uL Basophils # (Auto) 0.06 0.00-0.20 K/uL Absolute Immature Granulocyte (auto 0.07 0-1 K/uL Nucleated Red Blood Cells 0.0 0.0-0.19 % Sodium Level 139 140 136-145 mmol/L Potassium Level 3.3 L 3.7 3.5-5.1 mmol/L Chloride Level 103 103 101-111 mmol/L Carbon Dioxide Level 30 28 21-32 mmol/L Blood Urea Nitrogen 23 H 22 H 7-18 mg/dL Creatinine 1.5 H 1.4 H 0.5-1.3 mg/dL Glomerular Filtration Rate Calc 45 49 >90 mL/min Random Glucose 114 H 96 70-105 mg/dL Total Calcium 9.1 8.9 8.5-10.1 mg/dL Magnesium Level 2.10 2.10 1.80-2.40 mg/dL Total Bilirubin 0.5 0.2-1.0 mg/dL Direct Bilirubin 0.2 0.0-0.3 mg/dL Aspartate Amino Transf (AST/SGOT) 30 10-37 U/L Alanine Aminotransferase (ALT/SGPT) 37 12-78 U/L Alkaline Phosphatase 152 H 50-136 U/L Troponin I High Sensitivity 6 6.7 4-75 ng/L Total Protein 7.0 6.0-8.3 g/dL Albumin 3.6 3.5-5.0 g/dL Urine Color LIGHT-YELLOW YELLOW Urine Appearance CLOUDY H CLEAR Urine pH 5.5 5.0-8.0 Urine Specific [place] 1.016 1.001-1.031 Urine Protein 10 H NEGATIVE mg/dL Urine Glucose (UA) NEGATIVE NEGATIVE mg/dL Urine Ketones NEGATIVE NEGATIVE mg/dL Urine Occult Blood SMALL H NEGATIVE Urine Nitrate NEGATIVE NEGATIVE Urine Bilirubin NEGATIVE NEGATIVE mg/dL Urine Urobilinogen 0.2 0.2-1.0 mg/dL Urine Leukocyte Esterase 250 H NEGATIVE [place]/uL Urine RBC 11-25 H 0-1 /HPF Urine WBC 26-50 H 0-1 /HPF Urine Squamous Epithelial Cells RARE 0-2 /HPF Urine Non-Squamous Epithelial Cells 2 0-2 /HPF Urine Bacteria None None Seen /HPF Urine Opiates Screen NEGATIVE NEGATIVE Urine Barbiturates Screen NEGATIVE NEGATIVE Urine Phencyclidine Screen NEGATIVE NEGATIVE Urine Amphetamines Screen NEGATIVE NEGATIVE Urine Benzodiazepines Screen NEGATIVE NEGATIVE Urine Cocaine Screen NEGATIVE NEGATIVE Urine Marijuana (THC) Screen NEGATIVE NEGATIVE Influenza Type A Antigen Negative For Type A NEGATIVE Influenza Type B Antigen Negative For Type B NEGATIVE SARS-CoV-2 Antigen (Rapid) PRESUMPTIVE NEGATIVE NEGATIVE Lactic Acid Level 1.7 0.8-2.5 mmol/L Total Creatine Kinase 30 # 21-232 U/L B-Type Natriuretic Peptide 167 H 0-100 pg/mL Thyroid Stimulating Hormone (TSH) 2.54 0.36-3.74 uIU/mL Test 07/10/25 14:26 Range/Units Total Creatine Kinase 32 21-232 U/L Troponin I High Sensitivity 5.5 4-75 ng/L Procalcitonin < 0.05 L 0.05-0.5 ng/mL Thyroid Stimulating Hormone (TSH) 1.74 # 0.36-3.74 uIU/mL ECG 07/10/2025: Ventricularly paced rhythm, heart rate 80 beats per minute. Assessment: 1. Palpitations 2. HTN 3. Chronic atrial fibrillation, on anticoagulation 4. Nonischemic cardiomyopathy 5. Chronic systolic congestive heart failure (LVEF 50% by echocardiogram done in 2024) status post Bi V AICD placement done on 12/18/2020 Plan: 1. Palpitations -Stable -ECG 07/10/2025: Ventricularly paced rhythm, heart rate 80 beats per minute. -Telemetry: Ventricularly paced rhythm. No arrhythmias identified. -laboratory data: troponin I: 5.5 -the patient presents after experiencing palpitations earlier this morning, that awoke him from sleep. The symptoms lasted less than 1 minute, and resolved without any specific treatment. -the etiology behind the patient's symptoms is unknown, but may be related to electrolyte derangement. We will interrogate the patient's pacemaker systolic for any other arrhythmias. In the meantime we recommend that he remain on m etoprolol tartrate 100 mg BID and that an electrolyte replacement protocol be initiated, in order to keep potassium greater than 4.0 and magnesium greater than 2.0. Additionally recommend the patient remain on telemetry monitoring 2. HTN -in order to optimize blood pressure control we will start the patient on losartan 12.5 mg daily. 3. Chronic atrial fibrillation, on anticoagulation -please see problem 1. For treatment details regarding this issue. -in addition the patient will be restarted on his home regimen of Eliquis 5 mg BID 4. Chronic systolic congestive heart failure (LVEF 50% by echocardiogram done in 2024) status post Bi V AICD placement done on 12/18/2020 -Stable -continue metoprolol tartrate 100 mg BID, furosemide 20 mg BID and losartan 12.5 mg daily Thank you for this interesting consult and allowing us to participate in the care of your patient. Further recommendations to follow. RAMAN LEVY MD Jul 10, 2025 17:27
[2025-07-10] MEDS: 0.9%NACL 1000ML 1,000 ML IV SCH (20:23)
[2025-07-10 20:32] LABS: CREATINE KINASE, TOTAL 34.0 U/L (21-232)
[2025-07-10 22:30] VITALS: O2SAT 98
[2025-07-11] VITALS (9 sets, daily range): BP systolic 121–166; BP diastolic 68–95; PULSE 79–82; RESP 18–24; TEMP 97–97.6; O2SAT 98
[2025-07-11 04:59] LABS: IMMATURE GRANULOCYTE ABSOLUTE 0.05 K/uL (0-1); NUCLEATED RED BLOOD CELLS 0.0 % (0.0-0.19); PLATELET COUNT (AUTO) 174 K/uL (130-400); RED BLOOD CELL COUNT(AUTO) 4.20 MIL/uL (4.50-6.20); RED CELL DISTRIBUTION WIDTH 13.3 % (11.0-15.5); WHITE BLOOD COUNT (AUTO) 12.0 K/uL (4.8-10.8)
[2025-07-11 05:04] LABS: % IRON SATURATION 30.8 % (30-44); IRON, SERUM 83.0 mcg/dL (65-175)
[2025-07-11 05:20] LABS: CREATININE 1.2 mg/dL (0.5-1.3); GLOMERULAR FILTR. RATE CALC 59.0 mL/min (>90); GLUCOSE,RANDOM 106.0 mg/dL (70-105); PHOSPHORUS 2.5 mg/dL (2.5-4.9); SODIUM SERUM 139.0 mmol/L (136-145); UREA NITROGEN, BLOOD 20.0 mg/dL (7-18)
--- NOTE | 2025-07-11 05:57 | HMCIMG ---
EXAMINATION: ULTRASOUND SCREENING OF THE ABDOMINAL AORTA WITH COLOR DOPPLER. CLINICAL HISTORY: Screening. Atherosclerosis. COMPARISON: No prior studies. TECHNIQUE: Real-time grayscale ultrasound images of the aorta. In addition, color Doppler is medically necessary to perform in order to evaluate vascularity and blood flow. FINDINGS: The proximal, mid, and distal aspects of the abdominal aorta are normal in caliber measuring 2.3 x 2.3 x 2.6 cm, 2.3 x 2.3 x 2.4 cm, and 2.0 x 2.3 x 2.1 cm in the craniocaudal, AP and transverse dimensions respectively. There is no evidence of plaques in the aorta. The velocity in the aorta is 120 cm/s. The right common iliac artery is normal in caliber measuring 1.3 x 1.3 x 1.3 cm (PSV is 78 cm/s). The left common iliac artery is normal in caliber measuring 1.2 x 1.2 x 1.3 cm (PSV is 71 cm/s). IMPRESSION: Mild intimal thickening in the abdominal aorta. No aneurysm. /[place]
--- NOTE | 2025-07-11 10:22 | PN ---
[facility] PROGRESS NOTE Date Patient Seen: Jul 11, 2025 Time of Visit: 10:21 Supervising Physician: Dr. Carson Toro Primary Care Physician: Dr. Ccii Galeana Outpatient Specialists: Dr. Perez (pulmonary, [place], [place]), Dr. Lokesh Wise ( cardiology), Inpatient Consults: Dr. Lokesh Wise ( cardiolog PROBLEM LIST: Acute hypoxic respiratory failure, POA Palpations Acute complicated cystitis LORENE on ATN CHRONIC PROBLEM LIST: Obstructive sleep apnea, utilizes CPAP COPD, not in acute exacerbation AFib, s/p AICD Hypertension Hyperlipidemia Obesity, BMI 31.1 Cerebrovascular disease s/p cerebrovascular accident PLAN: Telemetry. Diet: Cardiac 2 g low-sodium Echocardiogram Acute complicated cystitis, ceftriaxone 2 g IV Q 24 hours Scan patient's bladder if residual urine is greater than 350, Adams catheter to be inserted patient be started on Flomax. Pacemaker interrogated awaiting report Patient's home medications reviewed and reconciled GI prophylaxis Protonix 40 mg p.o. daily DVT prophylaxis with heparin 5000 units b.i.d. Further orders per course of stay A.m. labs INTERVAL HISTORY: Patient examined and seen sitting outside the bed in a chair with spouse present. Awake, alert, and oriented. Patient denies shortness or breath, fever, chills, nauseousness, constipation and diarrhea currently. Patient reports not using CPAP at home for MONALISA using nonpharmacological approaches adjusting high of head of bed using a specialized pillow. Patient is a diagnosed with a acute complicated cystitis we will bladder scan the patient's bladder if he has residual urine in his bladder greater than 350 mL Adams catheter we will be inserted. If above listed occurs patient will also be started on Flomax 0.4 mg p.o. Afebrile Hemodynamically stable. After reviewing and discussing laboratory results diagnostic tests results, vital signs, and consultants recommendations there were no further questions or concerns. Further orders per course of stay REVIEW OF SYSTEMS: 12 point ROS reviewed with patient. Pertinent positives mentioned above. Otherwise negative. PHYSICAL EXAM: GENERAL: alert, weak, awake oriented x 3 HEENT: EOMI, Sclera non icteric, moist mucosa NECK: Supple, no JVD, trachea midline LUNGS: Clear breath sounds bilaterally. No wheezes HEART: Regular rate and rhythm. Normal S1 and S2, without murmurs ABD: Abdomen soft, nontender. Bowel sounds present EXT: No clubbing cyanosis or edema NEURO: Alert and oriented to person, follows commands Vital Signs (last 8hr) Date Time Temp Pulse Resp B/P (MAP) Pulse Ox O2 Delivery O2 Flow Rate FiO2 07/11/25 09:04 124/68 07/11/25 08:00 97.3 79 18 166/92 98 Room Air 07/11/25 04:00 97.0 81 24 163/87 97 Room Air LABS: Hematology Labs: Test 07/11/25 04:36 Range/Units White Blood Count 12.0 H 4.8-10.8 K/uL Red Blood Count 4.20 L 4.50-6.20 MIL/uL Hemoglobin 13.7 L 14.0-18.0 g/dL Hematocrit 42.7 42-54 % Mean Corpuscular Volume 101.7 H 79-99 fL Mean Corpuscular Hemoglobin 32.6 27.0-33.0 pg Mean Corpuscular Hemoglobin Concent 32.1 32.0-36.0 g/dL Red Cell Distribution Width 13.3 11.0-15.5 % Platelet Count 174 130-400 K/uL Mean Platelet Volume 11.4 H 7.5-10.5 fL Immature Granulocyte % (Auto) 0.4 0-1 % Neutrophils (%) (Auto) 70.0 40.0-77.0 % Lymphocytes (%) (Auto) 16.3 L 21.0-51.0 % Monocytes (%) (Auto) 8.7 3.0-13.0 % Eosinophils (%) (Auto) 4.3 0.0-8.0 % Basophils (%) (Auto) 0.3 0.0-5.0 % Neutrophils # (Auto) 8.4 H 1.8-7.7 K/uL Lymphocytes # (Auto) 2.0 1.0-4.8 K/uL Monocytes # (Auto) 1.0 0.1-1.0 K/uL Eosinophils # (Auto) 0.51 0.00-0.70 K/uL Basophils # (Auto) 0.04 0.00-0.20 K/uL Absolute Immature Granulocyte (auto 0.05 0-1 K/uL Nucleated Red Blood Cells 0.0 0.0-0.19 % Chemistry Labs: Test 07/11/25 05:38 07/11/25 04:36 07/10/25 20:08 07/10/25 14:26 Range/Units Whole Blood Glucose 109 70-110 MG/DL Sodium Level 139 136-145 mmol/L Potassium Level 3.9 3.5-5.1 mmol/L Chloride Level 104 101-111 mmol/L Carbon Dioxide Level 28 21-32 mmol/L Blood Urea Nitrogen 20 H 7-18 mg/dL Creatinine 1.2 0.5-1.3 mg/dL Glomerular Filtration Rate Calc 59 >90 mL/min Random Glucose 106 H 70-105 mg/dL Total Calcium 8.9 8.5-10.1 mg/dL Phosphorus Level 2.5 2.5-4.9 mg/dL Magnesium Level 2.00 1.80-2.40 mg/dL Iron Level 83 65-175 mcg/dL Total Iron Binding Capacity 269 250-450 mcg/dL Percent Iron Saturation 30.8 30-44 % Thyroid Stimulating Hormone (TSH) 2.26 # 0.36-3.74 uIU/mL Total Creatine Kinase 34 21-232 U/L Troponin I High Sensitivity 5.6 4-75 ng/L Procalcitonin < 0.05 L 0.05-0.5 ng/mL Test 07/10/25 08:39 07/10/25 03:58 Range/Units Lactic Acid Level 1.7 0.8-2.5 mmol/L B-Type Natriuretic Peptide 167 H 0-100 pg/mL Total Bilirubin 0.5 0.2-1.0 mg/dL Direct Bilirubin 0.2 0.0-0.3 mg/dL Aspartate Amino Transf (AST/SGOT) 30 10-37 U/L Alanine Aminotransferase (ALT/SGPT) 37 12-78 U/L Alkaline Phosphatase 152 H 50-136 U/L Total Protein 7.0 6.0-8.3 g/dL Albumin 3.6 3.5-5.0 g/dL DIAGNOSTICS / RADIOLOGY RESULTS: [ ] PLAN NEURO: Minimize central acting medications as possible. Maintain fall precautions, adequate lighting during the day PULMONARY: Supplemental 02 as needed. Maintain aspiration precautions at all times CARDIOVASCULAR: Follow hemodynamics. Vital signs per facility protocol GI & NUTRITION: Continue with nutritional support. Continue stool softeners and laxatives as needed. KIDNEYS & ELECTROLYTES: Strict monitoring of intake, output and overall fluid balance. Avoid nephrotoxic medications to the extent possible. Medications to be dosed according to renal function. Monitor electrolytes and replace as needed ENDOCRINE: Maintain blood glucose between 100-180 at all times. Hypoglycemia protocol in place INFECTIOUS DISEASE: Trend temperature, WBC and procalcitonin level Follow cultures, deescalate antibiotics as soon as possible. Panculture if new onset fever ONCOLOGY/HEMATOLOGY/COAGULATION: Monitor for s/s of bleeding Monitor hemoglobin, coagulation studies as needed SKIN: Pressure ulcer prevention per facility protocol Specialty mattress ORTHO/REHAB: Continue PT/OT Prophylaxis: Continue GI and DVT prophylaxis Code Status: Full Resuscitation Disposition: TBD Other: Total patient care time exceeds 35 minutes excluding all procedures. JONNA AMARO AGACNP Jul 11, 2025 10:22
--- NOTE | 2025-07-11 16:50 | NUR ---
HOME MEDICATIONS LACOSEMIDE 100MG GIVEN AT THIS TIME FROM HOME MEDICATIONS ORDERED.
[2025-07-11] MEDS ORDERED: PHARMACY COMMUNICATION MISC SCH (17:00)
--- NOTE | 2025-07-11 18:00 | NUR ---
DISCHARGE DAUGHTER AT BEDSIDE. HANDED PRESCRIPTIONS TO PT. PT AWARE TO FOLLOW UP WITH PCP. ANSWERED ALL QUESTIONS AT THIS TIME. PT DENIES PAIN AT THIS TIME. Addendum: 07/11/25 at 1814 by SUMIT BRANNON LVN LVN WRONG PATIENT/ ERROR
[2025-07-11] MEDS: EZETIMIBE 10 MG TAB PO SCH (20:59)
[2025-07-11] MEDS ORDERED: NON-FORMULARY MEDICATION 1 EACH (Metoprolol Tartrate 1 TAB) PO SCH (21:00)
[2025-07-11] MEDS: LEVOCETIRIZINE DIHYDROCHLORIDE PO SCH (21:01)
[2025-07-12 04:00] VITALS: BP 169/97; PULSE 81; RESP 18; TEMP 97.5
[2025-07-12 04:39] LABS: NUCLEATED RED BLOOD CELLS 0.0 % (0.0-0.19); PLATELET COUNT (AUTO) 207.0 K/uL (130-400); RED BLOOD CELL COUNT(AUTO) 4.4 MIL/uL (4.50-6.20); RED CELL DISTRIBUTION WIDTH 13.3 % (11.0-15.5); WHITE BLOOD COUNT (AUTO) 13.1 K/uL (4.8-10.8)
[2025-07-12 05:03] LABS: ASPARTATE AMINOTRANSFERASE 28.0 U/L (10-37); CREATININE 1.5 mg/dL (0.5-1.3); GLOMERULAR FILTR. RATE CALC 45.0 mL/min (>90); GLUCOSE,RANDOM 126.0 mg/dL (70-105); SODIUM SERUM 143.0 mmol/L (136-145); TOTAL PROTEIN, SERUM 7.6 g/dL (6.0-8.3); UREA NITROGEN, BLOOD 21.0 mg/dL (7-18)
[2025-07-12 07:30] VITALS: O2SAT 95
[2025-07-12 08:07] VITALS: BP 133/86; PULSE 80; RESP 17; TEMP 98.4
--- NOTE | 2025-07-12 08:40 | NUR ---
PATIENT UPDATE DR. KNIGHT ROUNDED THIS AM, PT SEEN AND EXAMINED. WAS INFORMED ABOUT HIS PACEMAKER DEVICE INTERROGATED IN ER YESTERDAY BUT UNABLE TO FIND ANY NOTES ABOUT THE INTERROGATION. SAMUEL CALLED AGAIN THIS AM, STATED THAT THE REP WILL COME FROM [place] THIS AM AT 1000 TO INTERROGATE. AM NURSE AND MADE AWARE ABOUT DR. KNIGHT'S ORDER FOR THE REP TO CALL HIM HIMSELF TO GET AN UPDATE ABOUT THE INTERROGATION. PT MORE CALM AND RELAXED AFTER HE WAS SEEN BY DR. KNIGHT. WAS VERY CONFUSED AND DISORIENTED SINCE 0400, DRESSED UP AND STATED THAT HE'S SUPPOSED TO BE DISCHARGED ALREADY. REFUSED THE IV INFUSION FROM LAST NIGHT, HAD IT TAKEN OFF AT 0100, STATED THAT HE DOESNT NEED IT ANYMORE. NO COMPLAINTS OF CHEST PAIN, NO PALPITATION EPISODES.
[2025-07-12 12:00] VITALS: BP 151/91; PULSE 80; RESP 18; TEMP 97.3
--- NOTE | 2025-07-12 17:31 | PN ---
PROBLEM LIST: * Recurrent palpitations, questionable etiology. * History of hypertension. * Chronic atrial fibrillation, on chronic anticoagulation. * History of dilated, nonischemic cardiomyopathy. * Chronic systolic and diastolic LV dysfunction with advanced LV dysfunction, improved after biventricular AICD placement in 11/2020 with echocardiogram done in 2024 revealing an EF of 50%. * Questionable history of seizure disorder. * Questionable history of a CVA. * UTI. * Hypokalemia. * Acute kidney injury. * Obstructive sleep apnea, on CPAP therapy. * COPD. This patient has been hospitalized because of vague symptoms of palpitations. When I questioned carefully, it may be that his symptoms of palpitations are likely due to diaphragmatic stimulation from his left ventricular lead. The patient has been stable in the hospital with no significant arrhythmia. His chronic atrial fibrillation is pacing in a biventricular fashion. No ventricular ectopy were identified. The patient's has noted that he has been fairly confused; however, it is evident that he had become confused in hospital settings in the past. He also thinks that some of his medications given by his neurologist in [place] may contribute to his confusion. Over the last 24 hours, the patient's vital signs have been stable. He has been a little hypertensive in the 140-165 systolic range. He is saturating at 100% on room air and he is afebrile. His heart rate is in the 80s. The patient is currently maintained on lacosamide, atorvastatin, ezetimibe, Colace, ceftriaxone, losartan, furosemide, apixaban, metoprolol, pantoprazole, and p.r.n. medications. Laboratory studies this morning revealed a white count of 13.1 up from 12.0 yesterday. The H and H are stable at 14.3 and 44.5 respectively. The platelet count is 207,000. The patient's chemistries have revealed sodium of 143, potassium of 4.1, chloride of 106, CO2 is 27, the BUN is 21 and the creatinine is 1.5 up from 1.2 yesterday. The GFR is 45 down from 59 yesterday. The patient's random glucose is 126. His total calcium is 9. His magnesium is 2.0. The patient's iron, percentage saturation, and iron binding capacity are all adequate in normal range. The total bilirubin is 0.7. Liver enzymes are normal except for alkaline phosphatase, which is mildly elevated at 146. The high sensitivity troponin has been negative. TSH is normal at 2.26. The serum protein and albumin are normal. The patient will have a device interrogation. He is not having any acute cardiac issues at this point in time. If the device interrogation does not reveal any device discharge or malignant arrhythmia, I think the patient can be followed as an outpatient. I will schedule an appointment with him to see me in the near future and I also believe that we need to do a device interrogation in the office in my presence to try and see if we can reproduce diaphragmatic stimulation and adjust the vectors or the outputs. The patient also needs to be seen by Neurology soon after dismissal. TID: [id number] RECEIPT: [id number]
--- NOTE | 2025-07-12 22:56 | DS ---
[facility] DISCHARGE SUMMARY Date Patient Seen: Jul 12, 2025 Time of Visit: 22:56 Supervising Physician: Dr. Rosendo Serra Primary Care Physician: Dr. Cici Galeana Outpatient Specialists: Dr. Perez (pulmonary, [place], [place]), Dr. Lokesh Wise ( cardiology), Inpatient Consults: Dr. Lokesh Wise ( cardiolog PROBLEM LIST: Acute hypoxic respiratory failure, POA, Resolved Palpations Acute complicated cystitis LORENE on ATN CHRONIC PROBLEM LIST: Obstructive sleep apnea, utilizes CPAP COPD, not in acute exacerbation AFib, s/p AICD Hypertension Hyperlipidemia Obesity, BMI 31.1 Cerebrovascular disease s/p cerebrovascular accident HOSPITAL COURSE: Patient was admitted to the hospital with his complaint being palpations in a patient with a significant cardiac history, AFib status post AICD implanted, hypertension, obesity, COPD, obstructive sleep presents to the emergency department with outpatient clinical workup included interrogation of device. After the there was an adjustment of the patient's medications for optimization of cardiovascular health. Patient will follow up with the manager [facility] at a scheduled appointment upcoming soon after being discharged with Dr. Wise. At the appointment the [facility] we will attempt replicate the patient's palpation at the same time have the have the AICD interrogated so adjustment needs to be made time. During the hospitalization patient had medications adjusted laboratory studies vital signs. Medication adjustment include the following: Losartan 12.5 mg, patient will anticoagulation therapy with Eliquis 5 mg p.o. b.i.d., continue with metoprolol 100 mg p.o. b.i.d. and furosemide 40 mg p.o. b.i.d., tamsulosin 0.4mg p.o.daily, cefdinir 300 mg p.o. b.i.d. for 5 days for the treatment of acute complicated cystitis. This information was reviewed and discussed with both patient and his spouse at bedside, and both agree to this discharge plan new medications. The patient was provided these prescriptions so his medications we will update updated and optimize cardiovascular health upon discharge. Patient agrees to follow up with his [facility], Dr. Wise you have a ICD interrogated in the office and follow up with primary care provider Dr. Cici Galeana. There were no questions or concerns with the patient can be discharged home with family care HPI (per admitting provider) Paddy Correa, 84-year-old gentleman, patient of PCP Dr. Cici Galeana, health history: AFib, s/p AICD, hypertension, obesity, COPD, MONALISA, and history of smoking presents to the emergency department with palpations. Patient awoke from sleep feeling his heart racing which prompted the patient to report immediately to the emergency department early this morning for further evaluation, treatment, and management. Onset was this early this morning. Patient reports not feeling his AICD firing. Patient denies recent ill person contact, fever, chills, chest pain, recent weight loss or night sweats and also reports no changes in medication at this time. Vital signs: Temperature 98.6, pulse 80, respirations 20, blood pressure 125/74, 97 % oxygen saturation on room air, FiO2, 21. Lab results: WBC 11.7, hemoglobin 13.9, hematocrit 43.1, platelets 182, sodium 140, potassium 3.7, BUN 22, creatinine 1.4, GFR 49, total calcium 8.9, magnesium 2.1, BNP 167, TSH 2.54 troponin high-intensity 6.7, creatine kinase 30. Urine: Leukocyte esterase 250, urine nitrate negative, urine bilirubin negative. Serology: Influenza A negative, influenza B negative, and [id number] presumptive negative. CXR results: Bibasilar airspace disease may reflect an infectious and/or an inflammatory process. The patient was examined and assessed in the emergency department [place] 18 with spouse at bedside patient is awake alert and oriented as well as in no acute distress the time of my assessment. 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 daily 30 days, 30 tablets Eliquis 5 mg p.o. b.i.d. 30 days, 60 tablets Metoprolol 100 mg p.o. b.i.d., 30 days, 60 tablets Furosemide 20 mg p.o. b.i.d. 30 days, 60 tablets Tamsulosin 0.4 mg p.o. daily 30 days, 30 tablets Cefdinir 300 mg p.o. b.i.d. five days, 10 tablets, antibiotic for acute complicated cystitis Pt hemodynamically stable and afebrile at time of discharge. PCP notified of patients admission, hospital course and discharge. PHYSICAL EXAM: GENERAL: alert, weak, awake oriented x 3 HEENT: EOMI, Sclera non icteric, moist mucosa NECK: Supple, no JVD, trachea midline LUNGS: Clear breath sounds bilaterally. No wheezes HEART: Regular rate and rhythm. Normal S1 and S2, without murmurs ABD: Abdomen soft, nontender. Bowel sounds present EXT: No clubbing cyanosis or edema NEURO: Alert and oriented to person, follows commands FOLLOW-UP: Dr. Cici Galeana Follow-up with PCP in 2-3 days RECOMMENDATIONS: See Discharge Instructions This case was seen and discussed with my supervising physician. More than 52 minutes spent on discharge process, including evaluation of the patient, discussion with nursing staff, medication reconciliation and follow-up appointments JONNA AMARO [facility] Jul 12, 2025 22:56
== END 2025-07-12 17:45 | disposition home or self-care (01) ==
LOC: EDH 03:40 → EDHIP 07:08 → 3AH 22:18
PROVIDERS: ADMIT Internal Medicine Critical Care Medicine; ATTEND Internal Medicine Critical Care Medicine
DX: J96.01 Acute respiratory failure with hypoxia (principal); I48.20 Chronic atrial fibrillation, unspecified; I13.0 Hypertensive heart and chronic kidney disease with heart failure and stage 1 through stage 4 chronic kidney disease, or unspecified chronic kidney disease; E11.22 Type 2 diabetes mellitus with diabetic chronic kidney disease; I50.22 Chronic systolic (congestive) heart failure; N18.9 Chronic kidney disease, unspecified; N17.0 Acute kidney failure with tubular necrosis; E78.5 Hyperlipidemia, unspecified; E66.9 Obesity, unspecified; G47.33 Obstructive sleep apnea (adult) (pediatric); G40.909 Epilepsy, unspecified, not intractable, without status epilepticus; I25.10 Atherosclerotic heart disease of native coronary artery without angina pectoris; R00.2 Palpitations; R00.0 Tachycardia, unspecified; Z68.31 Body mass index [BMI] 31.0-31.9, adult; Z79.01 Long term (current) use of anticoagulants; Z79.899 Other long term (current) drug therapy; Z86.73 Personal history of transient ischemic attack (TIA), and cerebral infarction without residual deficits; Z95.810 Presence of automatic (implantable) cardiac defibrillator; Z87.891 Personal history of nicotine dependence; Z98.890 Other specified postprocedural states; Z20.822 Contact with and (suspected) exposure to COVID-19
CPT/HCPCS: 81001; 96372; 96361 ×3; 99285; 84443 ×3; 82550 ×3; 80076; 83735 ×4; 84484 ×4; 80048 ×3; 83880; 80305; 85025 ×2; 87040 ×2; 87086; 87804 ×2; 83605; 87426; 36415 ×3; 71045; 76775; 93005; 84145; 96365; 83540; 83550; 84100; 82948; 97161; 97116; 97530 ×2; 96366; 80053; 85027; G0378 ×59; J1644; J0696 ×2